=== PATIENT | male | born 1940 | race Caucasian/White ===

== ENCOUNTER 2017-09-17 02:55 | Observation (INO) | payer MEDICARE, OTHER ==
[~2017-09-17] VITALS: Ht 172.7 cm; Wt 115.2 kg
[~2017-09-17 02:55] MED LIST: ADULT ASPIRIN81 MG PO; EFFIENT PO; KENALOG60 GM TP; LORTAB 7.51 EA PO; SURFAK240 M2 PO; Z.0.KEFLEX500 MG PO; Z.0.LISINOPRIL10 MG PO; Z.0.METOPROLOL SUCC2 PO; Z.0.SIMVASTATIN40 MG PO
[2017-09-17 03:40] LABS: BASOPHILS # (AUTO) 0.1 (0.0-0.1); BASOPHILS % 0.5 % (0.0-1.0); EOSINOPHILS # (AUTO) 0.1 (0.0-0.4); EOSINOPHILS % 1.1 % (0.0-6.0); HEMATOCRIT 41.7 % (38.2-49.6); HEMOGLOBIN 14.4 g/dL (14.0-18.0); LYMPHOCYTES % 9.1 % (18.0-39.1); MEAN CORPUSCULAR HEMOGLOBIN 29.8 pg (28-32); MEAN CORPUSCULAR HGB CONC 34.5 g/dL (31-35); MEAN CORPUSCULAR VOLUME 86.3 fL (81-99); MONOCYTES # (AUTO) 0.7 (0.2-0.8); MONOCYTES % 6.7 % (4.4-11.3); NEUTROPHILS # (AUTO) 8.8 (2.1-6.9); NEUTROPHILS % 81.9 % (38.7-80.0); PLATELET COUNT 157 x10e3/uL (140-360); RED BLOOD COUNT 4.83 x10e6/uL (4.3-5.7); RED CELL DISTRIBUTION WIDTH 13.4 % (11.7-14.4)
[2017-09-17 03:44] LABS: INR 0.91; PROTHROMBIN TIME 12.7 seconds (11.9-14.5)
[2017-09-17 03:45] LABS: BILIRUBIN,URINE NEGATIVE (NEGATIVE); KETONES,URINE NEGATIVE (NEGATIVE); LEUKOCYTE ESTERASE ,URINE NEGATIVE (NEGATIVE); NITRITE,URINE NEGATIVE (NEGATIVE); URINE UROBILINOGEN 0.2 mg/dL (0.2 - 1)
[2017-09-17 03:45] LABS: PARTIAL THROMBOPLASTIN TIME 18.7 seconds (23.8-35.5)
[2017-09-17 03:48] LABS: CLARITY,URINE CLEAR (CLEAR); COLOR,URINE YELLOW (YELLOW); PROTEIN,URINE DIPSTICK 1+ (NEGATIVE)
[2017-09-17] MEDS ORDERED: ACETAMINOPHEN 325 MG TAB PO ONE (04:00)
[2017-09-17 04:11] LABS: EPITHELIAL CELLS,URINE FEW /LPF; RBC,URINE 0-5 /HPF (0-5); WBC,URINE (MAN) 0-5 /HPF (0-5)
[2017-09-17] MEDS ORDERED: ATORVASTATIN CA20 MG PO (04:13)
[2017-09-17] MEDS ORDERED: CLOPIDOGREL75 MG PO (04:13)
[2017-09-17 04:18] LABS: ALBUMIN 3.4 g/dL (3.5-5.0); ALBUMIN/GLOBULIN RATIO 0.9 (0.8-2.0); ANION GAP 15.2 mmol/L (8-16); CALCIUM 9.2 mg/dL (8.4-10.2); CREATININE, SERUM 1.18 mg/dL (0.72-1.25); POTASSIUM 4.2 mmol/L (3.5-5.1)
[2017-09-17 04:24] LABS: CREATINE KINASE MB 1.7 ng/mL (0.00-5.00); TROPONIN I 0.063 ng/mL (0-0.300)
--- NOTE | 2017-09-17 04:37 | Diagnostic Imaging Report ---
EXAM: CHEST SINGLE (PORTABLE), AP 1 view DATE: 09/17/2017 3:23 AM Time stamp on exam: 0357 hours INDICATION: Shortness of breath, headache COMPARISON: PA and lateral view of the chest May 11, 2012 FINDINGS: LINES/TUBES: None LUNGS: No consolidations or edema. PLEURA: No effusions or pneumothorax. HEART AND MEDIASTINUM: Normal size and contour. BONES AND SOFT TISSUES: No acute findings. Median sternotomy wires. IMPRESSION: No acute thoracic abnormality. Signed by: Dr. Manasa Lu M.D. on 09/17/2017 4:34 AM
[2017-09-17] MEDS ORDERED: SODIUM CHLORIDE 0.9% 1000ML 1,000 ML IV STA (05:29)
[2017-09-17] MEDS ORDERED: CEFTRIAXONE SOD 1 GM VIAL IV SCH (07:00)
[2017-09-17] MEDS ORDERED: CEFTRIAXONE SOD 1 GM/NS 50 ML 50 ML IV SCH (07:00)
[2017-09-17] MEDS ORDERED: AZITHROMYCIN 500MG/NS 250 ML 250 ML IV SCH (07:00)
[2017-09-17] MEDS ORDERED: CEFTRIAXONE SOD 1 GM VIAL ONE (07:01)
[2017-09-17] MEDS ORDERED: SODIUM CHLORIDE 0.9% 1000ML 1,000 ML IV SCH (07:15)
[2017-09-17] MEDS ORDERED: ONDANSETRON HCL INJ 2 MG/ML VIAL IV PRN (07:15)
[2017-09-17] MEDS ORDERED: METHYLPREDNISOLONE SOD SUCC 125 MG/2ML VIAL IV ONE (07:15)
[2017-09-17] MEDS ORDERED: MORPHINE SULFATE 2 MG/ML SYR IV PRN (07:15)
[2017-09-17] MEDS ORDERED: METOPROLOL SUCCINATE 25 MG TAB XL PO SCH (09:00)
[2017-09-17] MEDS ORDERED: CLOPIDOGREL BISULFATE 75 MG TAB PO SCH (09:00)
[2017-09-17 10:33] VITALS: BP 174/74
[2017-09-17 11:13] VITALS: BP 174/74
[2017-09-17] MEDS ORDERED: PREDNISONE20 MG PO (12:04)
[2017-09-17] MEDS ORDERED: AZITHROMYCIN250 MG PO (12:04)
[2017-09-17] MEDS ORDERED: CLONIDINE HCL 0.1 MG TAB PO PRN (12:45)
[2017-09-17] MEDS ORDERED: LISINOPRIL 10 MG TAB PO SCH (17:00)
[2017-09-17 17:05] VITALS: BP 129/59
[2017-09-17] MEDS ORDERED: CEFTRIAXONE SOD 1 GM in WATER STERILE 10ML VIAL 10 ML IV SCH (19:00)
[2017-09-17] MEDS ORDERED: ATORVASTATIN 20 MG TAB PO SCH (21:00)
[2017-09-18] MEDS ORDERED: PREDNISONE 20 MG TAB PO SCH (09:00)
--- NOTE | 2017-09-18 15:00 | History and Physical ---
CHIEF COMPLAINT: Shortness of breath. HISTORY OF PRESENT ILLNESS: Mr. Chen is a 77-year-old gentleman with past medical history of hypertension, hypercholesterolemia, coronary artery disease with prior history of CABG in November 2013 and prior history of multiple PCIs by SHANNAN Nguyễn who presents to this institution with difficulty breathing and shortness of breath. The patient reports about 3 weeks ago having sinus nasal type drainage and stuffiness associated with some vertigo symptoms. He was seen by his primary care physician and was given some anti-decongestant medication. The patient progressively felt worse over the last several days with a sick contact being his coworker. He had been reporting over the last 3-4 days subjective fevers, chills, cough that is not productive and a little bit of subjective wheezing. The patient felt lethargic and had not been eating well over the last couple of days. He was seen in the emergency room here and was noted to have some wheezing and was given a steroid shot, which substantially made him feel better. He was also given a liter of IV fluids for mild dehydration which has perked him up. He is currently feeling very well right now. He did have a T max of 102 in the emergency room and was given a dose of Rocephin, azithromycin intravenously. Influenza screen was negative and chest x-ray did not show any evidence of congestion or signs of pneumonia. Being that it is [place], the patient is very eager to go home, and wants to go home. He says that he feels better right now than in days, and understands and risks and benefits. His EKG showed normal sinus rhythm and nonspecific changes, but no ischemia and his troponin was 0.063 with a BNP of 160. Again, he denies any chest pain or discomfort and he says that he knows very well what angina feels like and had not had any in quite some time. PAST MEDICAL HISTORY: 1. Hypertension, essential, diagnosed in 1994. 2. Hypercholesterolemia in 1994. 3. Coronary artery disease with prior history of multiple stents, procedure with Dr. Crawford, and subsequently coronary artery bypass grafting in November 1013. 4. Degenerative joint disease. 5. History of prostate cancer. PAST SURGICAL HISTORY: 1. History of left hip replacement in 2008. 2. History of prostatectomy in 2009. 3. History of 2-vessel bypass in 2013. FAMILY HISTORY: Mother at 89 with Parkinson's. Father at 92 with DJD. Has a brother with heart problems in his 60s, and he has another brother who at the age of 30 with lung cancer and another brother who at the age of 60 with lung cancer. SOCIAL HISTORY: He is . He is a former smoker. He quit 30 years ago. Denies any alcohol or illicit drug use. ALLERGIES: NO KNOWN DRUG ALLERGIES. CURRENT MEDICATIONS: 1. Plavix 75 mg daily. 2. Lipitor 20 mg daily. 3. Metoprolol 25 mg b.i.d. 4. Lisinopril 10 mg daily. 5. Of note, has been off antiplatelet therapy with aspirin to minimize risk of GI bleeding. REVIEW OF SYSTEMS: GENERAL: Positive for fevers and slight chills but no weight changes. HEENT: Has nasal stuffiness, no sore throat. Denies any post nasal drip symptoms. CARDIOVASCULAR: As per HPI. LUNGS: Positive for nonproductive cough. URI symptoms as noted per HPI. GI: Denies any abdominal pain, nausea or vomiting, bright red blood per rectum, hematemesis. HEMATOLOGY: Positive for easy bruising. No bleeding. : Denies any dysuria. Has increased urinary frequency and nocturia at times. MUSCULOSKELETAL: Has some knee arthritis and lower back pain that is chronic. NEUROLOGIC: Denies any focal weakness, numbness, seizures, TIA or stroke. Did have some dizziness and vertigo symptoms 3 weeks ago with nasal stuffiness and sinus issues. The remainder of review of systems negative unless otherwise mentioned. PHYSICAL EXAMINATION VITAL SIGNS: Height 68 inches, weight of 254 pounds. BMI is 38.6. Temperature 96.8, T max 102. Pulse 74, respiratory rate 20, blood pressure 130/61. O2 sat 97% on room air. GENERAL: This is a well-nourished, obese gentleman who is currently in no apparent distress. HEENT: Pupils are equally round and reactive to light with slightly injected sclerae. Oropharynx is clear. NECK: There is no elevation of jugular venous pulsation. No carotid bruits. CARDIOVASCULAR: Regular rate and rhythm. Normal S1 and S2. A soft 1/6 systolic ejection murmur at the left lower sternal border. LUNGS: There is an old sternotomy scar, surprisingly fairly clear to auscultation and bilaterally. Currently not wheezing. ABDOMEN: Soft and nontender. Obese. Normoactive bowel sounds. No hepatosplenomegaly. BACK: No costovertebral angle tenderness. EXTREMITIES: Warm with an old saphenous vein graft harvest scar. Pulses are 1+ to 2+ bilaterally upper and lower extremities. NEUROLOGIC: Alert and oriented x3. Cranial nerves II-XII intact. Strength is 5/5, nonfocal. PSYCHIATRIC: Normal fluent speech. Appropriate affect. No anxiety or delusions. LABORATORY DATA: White count of 10.75, hemoglobin 14.4, hematocrit 41.7, platelets 157,000. Sodium 129, potassium 4.2, chloride 100, bicarb 18, BUN 18, creatinine 1.18, glucose 248, calcium 9.2. AST 31, ALT 44, alkaline phosphatase 44. Total protein 7.1. Albumin of 3.4. BNP is 160. Troponin is 0.063. INR is 0.91. UA shows 0-5 white cells. Chest x-ray revealed no infiltrates. EKG revealed normal sinus rhythm and nonspecific ST-T wave changes. DIAGNOSES 1. Acute exacerbation of chronic bronchitis. 2. Coronary artery disease with history of bypass grafting. 3. Hypovolemic hyponatremia. 4. Elevated blood sugar, which is nonfasting. 5. Hypertension, essential. 6. Hyperglycemia. PLAN/RECOMMENDATIONS: 1. The patient seems to have responded quite nicely to IV steroid bursts, and will recommend continued therapy with that. 2. Will give him azithromycin for atypical coverage. 3. Will continue his antiplatelet therapy with Plavix. Statin therapy as well as beta laine therapy. 4. From a cardiovascular standpoint, there are no anticipated procedures at the present time. 5. Will recommend followup with pulmonary, primary care doctor in terms of his lung issues and then his impaired fasting blood sugar. 6. The patient is okay from cardiovascular standpoint to be discharged later on today. Job#: [id number]
== END 2017-09-17 16:58 | disposition home or self-care (01) ==
LOC: ER 02:55 → ERHOLD 07:09 → IMCU 09:55
PROVIDERS: ADMIT Internal Medicine Cardiovascular Disease; ATTEND Internal Medicine Cardiovascular Disease
DX: J20.9 Acute bronchitis, unspecified (principal); E86.0 Dehydration; E87.1 Hypo-osmolality and hyponatremia; I25.10 Atherosclerotic heart disease of native coronary artery without angina pectoris; Z95.1 Presence of aortocoronary bypass graft; Z87.891 Personal history of nicotine dependence; R73.9 Hyperglycemia, unspecified; J42 Unspecified chronic bronchitis
CPT/HCPCS: 36415; 71010; 80053; 81001; 82550; 82553; 83036; 83605; 83735; 83880; 84484; 85025; 85610; 85730; 87040; 87071; 87086; 87205; 87400; 93005; 96360; 99284; G0378; J0456; J0696 ×2; J2930; J7030

== ENCOUNTER → 2018-09-04 | Day surgery (SDC) | payer MEDICARE, OTHER ==
[2018-09-03 08:53] LABS: BASOPHILS # (AUTO) 0.1 (0.0-0.1); BASOPHILS % 0.9 % (0.0-1.0); EOSINOPHILS # (AUTO) 0.3 (0.0-0.4); EOSINOPHILS % 2.9 % (0.0-6.0); HEMATOCRIT 45.9 % (38.2-49.6); HEMOGLOBIN 15.3 g/dL (14.0-18.0); LYMPHOCYTES # (AUTO) 1.8 (1.0-3.2); LYMPHOCYTES % 17.4 % (18.0-39.1); MEAN CORPUSCULAR HEMOGLOBIN 28.9 pg (28-32); MEAN CORPUSCULAR HGB CONC 33.3 g/dL (31-35); MEAN CORPUSCULAR VOLUME 86.8 fL (81-99); MONOCYTES # (AUTO) 1.1 (0.2-0.8); MONOCYTES % 10.6 % (4.4-11.3); NEUTROPHILS % 67.9 % (38.7-80.0); PLATELET COUNT 253 x10e3/uL (140-360); RED BLOOD COUNT 5.29 x10e6/uL (4.3-5.7); RED CELL DISTRIBUTION WIDTH 13.5 % (11.7-14.4)
[~2018-09-04] MED LIST changes: +ATORVASTATIN CA20 MG PO; +AZITHROMYCIN250 MG PO; +BUPIVACAINE HCL 0.5% 10ML MPF VIAL INJ ONE; +CLOPIDOGREL75 MG PO; +FENTANYL CITRATE/PF 100MCG/2 ML INJ ONE; +IOPAMIDOL 200 MG/ML 20 ML VIAL IT ONE; +LIDOCAINE HCL 1% LOCAL INJ 20 ML VIAL ONE; +LIDOCAINE HCL 2% LOCAL INJ 5 ML SDV VIAL INJ ONE; +MIDAZOLAM HCL 2 MG/2 ML VIAL ONE; +MULTI-VITAMIN1 EACH; +PREDNISONE20 MG PO; +PROPOFOL IV EMULSION 10 MG/ML 20 ML VIAL ONE; +TRIAMCINOLONE ACET 40 MG/ML VIAL ONE; +VITAMIN D400 UNIT PO
--- OUTSIDE RECORDS SUMMARY | 2018-09-04 05:26 | XMS REPORT ---
Author Author [facility] Address Unknown Phone Unavailable Care Team Providers Care Outpatient Program Coordinator Name Role Phone Katherine GAMBINO Unavailable Unavailable Problems This patient has no known problems. Allergies, Adverse Reactions, Alerts This patient has no known allergies or adverse reactions. Medications This patient has no known medications. Results Test Description Test Time Test Comments Text Results Atomic Results Result Comments CHEST SINGLE (PORTABLE) [address] [address] Patient Name: DELORIS CENTENO MR #: [id number] : 1940 Age/Sex: 77/M Req #: [id number] Adm Physician: Ordered by: YESICA GAMBINO MD Report #: [id number] Location: ER Room/Bed: Procedure: [id number] DX/CHEST SINGLE (PORTABLE) Exam Date: 09/17/17 Exam Time: 0357 REPORT STATUS: Signed EXAM: CHEST SINGLE (PORTABLE), AP 1 view DATE: 09/17/2017 3:23 AM Time stamp on exam: 0357 hours INDICATION: Shortness of breath, headache COMPARISON: PA and lateral view of the chest May 11, 2012 FINDINGS: LINES/TUBES: None LUNGS: No consolidations or edema. PLEURA: No effusions or pneumothorax. HEART AND MEDIASTINUM: Normal size and contour. BONES AND SOFT TISSUES: No acute findings. Median sternotomy wires. IMPRESSION: No acute thoracic abnormality. Signed by: Dr. Demar Delvalle M.D. on 09/17/2017 4:34 AM Dictated By: DEMAR DELVALLE MD 3 Transcribed By: PING on 09/17/17433 COPY TO: YESICA GAMBINO MD
[2018-09-04 08:20] VITALS: BP 134/78
--- NOTE | 2018-09-04 11:42 | Operative Report ---
DATE OF PROCEDURE: September 04, 2018 PREOPERATIVE DIAGNOSIS: Osteoarthritis, right hip and lumbar spine. POSTOPERATIVE DIAGNOSIS: Osteoarthritis, right hip and lumbar spine. PROCEDURE: Fluoroscopic-guided injection, right hip. INDICATIONS: The patient is a 78-year-old gentleman who has arthritic changes in his right hip. He also has some issues with his low back. We have discussed the options. He would like to proceed with a fluoroscopic-guided corticosteroid injection of the right hip. He understands this will give him at least a temporary sense of how much pain is coming from his hip versus his back. He wishes to proceed. DESCRIPTION OF PROCEDURE: The patient was brought to the procedure room. He was given IV sedation. His right hip was prepped and draped in a sterile manner. A preoperative time out was performed. A C-arm image intensifier was used to assist in placing an 18-gauge spinal needle into the inferior recess of the right hip joint. A small amount of radiopaque dye was used to confirm intra-articular positioning. A mixture of 8 mL of 0.5% Marcaine and 40 mg of Kenalog were then injected into the joint. The needle was retrieved and a Band-Aid was applied. The patient was transported to the recovery room in stable condition. There was no blood loss, and all needle and sponge counts were correct. Job#: [id number]
== END | disposition home or self-care (01) ==
LOC: OR 05:21
PROVIDERS: ATTEND Specialist
DX: M16.11 Unilateral primary osteoarthritis, right hip (principal); E78.00 Pure hypercholesterolemia, unspecified; I10 Essential (primary) hypertension; Z96.642 Presence of left artificial hip joint; M47.816 Spondylosis without myelopathy or radiculopathy, lumbar region; Z85.46 Personal history of malignant neoplasm of prostate; I25.10 Atherosclerotic heart disease of native coronary artery without angina pectoris; Z95.5 Presence of coronary angioplasty implant and graft; I25.2 Old myocardial infarction; E78.5 Hyperlipidemia, unspecified; Z95.1 Presence of aortocoronary bypass graft; Z87.891 Personal history of nicotine dependence; Z01.812 Encounter for preprocedural laboratory examination; Z01.810 Encounter for preprocedural cardiovascular examination
CPT/HCPCS: 36415; 85025; 93005; 96379; J2001; J2250; J2704; J3301; Q9967

== ENCOUNTER 2018-11-20 06:52 | Inpatient (IN) | payer MEDICARE, OTHER ==
[2018-11-19 14:42] LABS: BASOPHILS # (AUTO) 0.1 (0.0-0.1); BASOPHILS % 0.5 % (0.0-1.0); EOSINOPHILS # (AUTO) 0.2 (0.0-0.4); EOSINOPHILS % 1.8 % (0.0-6.0); HEMATOCRIT 44.2 % (38.2-49.6); HEMOGLOBIN 15.1 g/dL (14.0-18.0); LYMPHOCYTES # (AUTO) 1.9 (1.0-3.2); LYMPHOCYTES % 19.6 % (18.0-39.1); MEAN CORPUSCULAR HEMOGLOBIN 29.5 pg (28-32); MEAN CORPUSCULAR HGB CONC 34.2 g/dL (31-35); MEAN CORPUSCULAR VOLUME 86.3 fL (81-99); MONOCYTES # (AUTO) 1.3 (0.2-0.8); MONOCYTES % 13.3 % (4.4-11.3); NEUTROPHILS # (AUTO) 6.4 (2.1-6.9); NEUTROPHILS % 64.5 % (38.7-80.0); PLATELET COUNT 248 x10e3/uL (140-360); RED BLOOD COUNT 5.12 x10e6/uL (4.3-5.7); RED CELL DISTRIBUTION WIDTH 14.2 % (11.7-14.4)
--- NOTE | 2018-11-19 15:52 | Diagnostic Imaging Report ---
EXAM: CHEST 2 VIEWS, PA and lateral DATE: 11/19/2018 Time stamp on exam: 2:30 PM INDICATION: Preoperative COMPARISON: 09/17/2017 FINDINGS: LINES/TUBES: Sternotomy wire sutures and mediastinal clips. LUNGS: No consolidations or edema. PLEURA: No effusions or pneumothorax. HEART AND MEDIASTINUM: Normal size and contour. BONES AND SOFT TISSUES: Flowing osteophytosis of the thoracic spine. IMPRESSION: No acute thoracic abnormality. Signed by: Dr. Quirino Gordillo DO on 11/19/2018 3:48 PM
[~2018-11-20] VITALS: Ht 172.7 cm; Wt 115.2 kg
[~2018-11-20 06:52] MED LIST changes: +ASPIRIN325 MG PO; -BUPIVACAINE HCL 0.5% 10ML MPF VIAL INJ ONE; -FENTANYL CITRATE/PF 100MCG/2 ML INJ ONE; -IOPAMIDOL 200 MG/ML 20 ML VIAL IT ONE; -LIDOCAINE HCL 1% LOCAL INJ 20 ML VIAL ONE; -LIDOCAINE HCL 2% LOCAL INJ 5 ML SDV VIAL INJ ONE; -MIDAZOLAM HCL 2 MG/2 ML VIAL ONE; -PROPOFOL IV EMULSION 10 MG/ML 20 ML VIAL ONE; -TRIAMCINOLONE ACET 40 MG/ML VIAL ONE; +TYLENOL WITH C1 EACH PO
[2018-11-20] MEDS ORDERED: VANCOMYCIN HCL 1 GM VIAL ONE (06:56)
[2018-11-20] MEDS ORDERED: SODIUM CHLORIDE 0.9% 500ML 500 ML ONE (06:56)
[2018-11-20] MEDS ORDERED: TRANEXAMIC ACID 1,000 MG/10 ML ML ONE (06:57)
[2018-11-20] MEDS ORDERED: BACITRACIN 50,000 UNIT VIAL ONE (06:57)
[2018-11-20] MEDS ORDERED: DEXAMETHASONE SOD PHOS 10 MG/1 ML VIAL ONE (07:26)
[2018-11-20] MEDS ORDERED: GABAPENTIN 300 MG CAP ONE (07:26)
[2018-11-20] MEDS ORDERED: CELECOXIB 200 MG CAP ONE (07:26)
[2018-11-20] MEDS ORDERED: CEFAZOLIN SOD 2 GM/D5W 50ML 50 ML IV ONE (07:26)
[2018-11-20] MEDS ORDERED: HYDROGEN PEROXIDE 120 ML BTL ONE (07:29)
[2018-11-20] MEDS ORDERED: ROPIVACAINE 246.25 MG, EPINEPHRINE HCL 1:1000 1ML 0.5 MG, CLONIDINE HCL 0.08 MG, KETORO... INJ ONE ×5 (07:30)
[2018-11-20] MEDS ORDERED: PROMETHAZINE HCL (IM) 25 MG/ML VIAL IM PRN (11:15)
[2018-11-20] MEDS ORDERED: DOCUSATE SODIUM 100 MG CAP PO PRN (11:15)
[2018-11-20] MEDS ORDERED: ACETAMINOPHEN 650 MG SUPP PR PRN (11:15)
[2018-11-20] MEDS ORDERED: KETOROLAC TROMETHAMINE 30 MG/ML VIAL IV PRN (11:15)
[2018-11-20] MEDS ORDERED: ONDANSETRON HCL INJ 2MG/ML 2ML 2 MG/ML VIAL IV PRN (11:15)
[2018-11-20] MEDS ORDERED: DIPHENHYDRAMINE HCL INJ 50 MG/ML VIAL IM/IV PRN (11:15)
[2018-11-20] MEDS ORDERED: HYDROCODONE/APAP 5MG-325MG TAB PO PRN (11:15)
--- NOTE | 2018-11-20 11:38 | Diagnostic Imaging Report ---
Exam: Pelvis single frontal view History: Status post total right hip replacement Comparison: None. Findings: See impression Impression: Status post total right hip replacement with intact and appropriately positioned acetabular cup and femoral stem components. Subcutaneous/interstitial gas and skin jerome compatible with recent surgery. No periprosthetic displaced fracture. Intact left hip prosthesis incidentally noted. Signed by: Dr. Jame Arellano M.D. on 11/20/2018 11:35 AM
[2018-11-20] MEDS: SODIUM CHLORIDE 0.9% 1000ML 1,000 ML IV SCH ×2 (14:11→21:01)
[2018-11-20] MEDS: ACETAMINOPHEN 1000 MG/100 ML IV SCH ×2 (14:11→17:18)
[2018-11-20] MEDS: CEFAZOLIN SOD 1 GM/NS 50ML 50 ML IV SCH ×2 (14:12→21:31)
[2018-11-20 14:49] VITALS: BP 136/76
[2018-11-20 14:51] VITALS: BP 136/76
[2018-11-20] MEDS ORDERED: SEVOFLURANE INHAL SOLN 250 ML PEN BTL ONE (15:18)
[2018-11-20] MEDS ORDERED: ROCURONIUM BROMIDE 10 MG/ML 5ML VIAL ONE (15:18)
[2018-11-20] MEDS ORDERED: GLYCOPYRROLATE INJ 1MG/ 5 ML SYR ONE (15:18)
[2018-11-20] MEDS ORDERED: ONDANSETRON HCL INJ 2MG/ML 2ML 2 MG/ML VIAL ONE (15:18)
[2018-11-20] MEDS ORDERED: DEXAMETHASONE SOD PHOS INJ 4 MG/ML VIAL ONE (15:18)
[2018-11-20] MEDS ORDERED: LIDOCAINE HCL 2% LOCAL INJ 5 ML SDV VIAL INJ ONE (15:18)
[2018-11-20] MEDS ORDERED: PROPOFOL IV EMULSION 10 MG/ML 20 ML VIAL ONE (15:18)
[2018-11-20] MEDS ORDERED: NEOSTIGMINE 5 MG/5ML SYR ONE (15:18)
[2018-11-20 16:56] VITALS: BP 152/62
[2018-11-20] MEDS ORDERED: CELECOXIB 100 MG CAP PO SCH (17:00)
[2018-11-20] MEDS: CELECOXIB 200 MG CAP PO SCH (17:17)
[2018-11-20] MEDS: ASPIRIN 325 MG TAB PO SCH (17:17)
--- NOTE | 2018-11-20 18:26 | Operative Report ---
DATE OF PROCEDURE: 11/20/2018 SURGEON: Jame uRelas MD MERCHANDISE COORDINATOR: Fortunato Pendleton PA-C PREOPERATIVE DIAGNOSIS: Osteoarthritis, right hip. POSTOPERATIVE DIAGNOSIS: Osteoarthritis, right hip. PROCEDURE: Right total hip arthroplasty. INDICATIONS: The patient is an active 78-year-old gentleman, who has end-stage arthritis of his right hip. He has failed conservative management and would like to proceed with a right total hip replacement. He had a left total hip replacement performed several years ago. He is happy with the outcome. We intend to match the prosthesis as much as possible. DESCRIPTION OF PROCEDURE: The patient was brought to the operating room and placed under general anesthetic. He was positioned in the left lateral decubitus position. His right hip was prepped and draped in a sterile manner. A preoperative time-out was performed. A posterior approach was made to the right hip. Care was taken to avoid injury to the sciatic nerve. Hemostasis was obtained with electrocautery. A deep self-retaining Charnley retractor was placed. The patient had good muscle quality for his age. The posterior capsule was carefully exposed and released. The hip was dislocated and an oscillating saw was used to resect the femoral head. Further hemostasis was obtained with electrocautery. Acetabular retractors were carefully placed. The remnant of the labrum was excised. The true floor of the acetabulum was established with a 50 mm reamer. The socket was then sequentially reamed up to 57 mm. The hip was irrigated on a number of occasions with a mixture of diluted polymyxin and vancomycin as well as a shower tip pulsatile lavage. A Miki 58 mm Trident socket was impacted into place. Excellent fixation was obtained. Fixation was further augmented with a 20 mm screw placed into the ilium. A highly crosslinked polyethylene liner with no posterior elevation and a 36 mm inner diameter was then seated. Care was taken to make sure that there was no evidence of soft tissue interposition. The socket was then packed with a moistly soaked lap sponge. Attention was directed towards the proximal femur. A box cutting osteotome and taper pin reamer were used to establish entry to the femoral canal. The Miki [place] 44 mm offset broaches were used for trial. A #1 stem had good stability for trial reduction. As with the other hip, a +5 mm head was needed to restore the offset and provide appropriate stability. The trial implants were removed. A bone plug was placed down the femoral canal. The canal was thoroughly irrigated with a pulsatile lavage. The canal was packed with moistly soaked peroxide sponges under suction. Two mixes of Simplex cement preloaded with antibiotics were prepared on the back table. This was inserted in a retrograde fashion and pressurized until about 6 minutes of cement time. The stem was seated to the predetermined level in about 15 degrees of anteversion. Once the cement had cured, repeat trial reductions were performed. Again, a +5 mm head was felt to be appropriate. The head was seated on to the stem and a final reduction was performed. A 100 mL premixed pericapsular DES injection was placed into the surrounding soft tissue. The posterior capsule was well preserved and was repaired with #2 Ethibond. The piriformis was well contracted and did not need to be repaired. The gluteal fascia was closed with #2 Ethibond. The skin was closed with subcuticular Vicryl and jerome. A sterile Aquacel bandage was applied. He was returned to the supine position, extubated, and transported to the recovery room in stable condition. Blood loss was approximately 100 mL. All needle and sponge counts were correct. Jame Ruelas MD DR/MAXX /[id number]
--- NOTE | 2018-11-20 19:20 | NUR ---
REPORT TAKEN FROM AM RN.WALKING ROUNDS DONE.
[2018-11-20] MEDS ORDERED: FENTANYL CITRATE/PF 100MCG/2 ML INJ ONE (19:27)
[2018-11-20] MEDS ORDERED: MIDAZOLAM HCL 2 MG/2 ML VIAL ONE (19:27)
[2018-11-20 20:00] VITALS: BP 135/66
[2018-11-20] MEDS ORDERED: ZOLPIDEM TARTRATE 5 MG TAB PO PRN (21:00)
[2018-11-20 22:00] VITALS: BP 135/66
[2018-11-21] VITALS: BP 156/59
--- NOTE | 2018-11-21 00:10 | NUR ---
JOSHI CARE GIVEN.ASSESSMENT DONE.NO RESP.DISTRESS.NO PAIN VOICED.ABDUCTION PILLOW IS IN PLACE.PLEXIPUMP AND REINALDO HOSE IN PLACE.BED LOCKED AND IN LOWEST POSITION.PHONE AND CALL LIGHT WITHIN REACH.INSTRUCTED TO CALL FOR ASSISTANCE NEEDED.INCISION SITE IS DRY AND INTACT.
[2018-11-21] MEDS: ACETAMINOPHEN 1000 MG/100 ML IV SCH ×2 (00:27→05:30)
[2018-11-21 04:00] VITALS: BP 143/65
[2018-11-21] MEDS: HYDROCODONE/APAP 7.5MG-325MG 1 EA TAB PO PRN ×2 (04:40→08:55)
--- NOTE | 2018-11-21 06:00 | NUR ---
D/C JOSHI PER MD ORDER.PT IS DUE TO VOID.
[2018-11-21] MEDS: CEFAZOLIN SOD 1 GM/NS 50ML 50 ML IV SCH (06:02)
[2018-11-21] MEDS: SODIUM CHLORIDE 0.9% 1000ML 1,000 ML IV SCH (06:27)
[2018-11-21 06:56] LABS: HEMATOCRIT 36.3 % (38.2-49.6); HEMOGLOBIN 12.2 g/dL (14.0-18.0)
--- NOTE | 2018-11-21 07:00 | NUR ---
REPORT GIVEN TO THE ONCOMING RN.WALKING ROUNDS DONE.STABLE CONDITION.
--- NOTE | 2018-11-21 07:27 | NUR ---
PT VOIDED AFTER JOSHI REMOVAL INTO TOILET
[2018-11-21 08:25] VITALS: BP 156/71
[2018-11-21 08:54] VITALS: BP 156/71
[2018-11-21] MEDS: CELECOXIB 200 MG CAP PO SCH (08:54)
[2018-11-21] MEDS: ASPIRIN 325 MG TAB PO SCH (08:54)
[2018-11-21] MEDS ORDERED: METOPROLOL SUCCINATE 25 MG TAB XL PO SCH (09:00)
[2018-11-21] MEDS ORDERED: LISINOPRIL 10 MG TAB PO SCH (09:00)
[2018-11-21] MEDS ORDERED: NORCO 7.5-3251 EACH PO (10:28)
--- NOTE | 2018-11-21 10:38 | NUR ---
CASE MANAGEMENT ASSESSMENT Splash Line Operator to bedside to discuss plan of care with patient/family. CM/SW role and care transitions discussed. Anticipated discharge plan discussed along with duration of care. CM/SW discussed patients right to make decisions in care. CM/SW work hours given. Patient lives: with his Alida Admit/Transfer: from PACU Hospital/ER visits since last admit: last hospitalization years ago when pt had heart bypass POA/Emergency contact: Alida Mancilla [phone] Current/Previous Home Health: Home health set up by Dr. Ruelas's office with [facility]. Pt agreeable to use that company. Choice letter signed and placed in chart. Copy to pt. CM called and spoke to Tereza at [facility]. Informed her that pt is discharging today. She stated they will try to see pt today, but if not, then they will see him tomorrow. P [phone] / F [phone]. Operative report and PT notes faxed to [facility]. PCP/Follow-up Care: Dr. Littlejohn - PCP; Pt states he will call Dr. Ruelas's office and make a follow up appointment. Has been instructed by MD to follow up 10 days after discharge. Current/Previous DME: Walker and brace was delivered to bedside. Pt declined 3-in-1 commode. 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 Name and number was also written on the patients whiteboard. Patient verbalized understanding of discussion. CM will follow-up with ongoing discharge and transition of care needs.
--- NOTE | 2018-11-21 11:00 | NUR ---
DISCHARGE INSTRUCTIONS GIVEN AND PRESCRIPTIONS GIVEN. PT VERBALIZED UNDERSTANDING . IV DC PRESSURE DRESSING APPLIED AND TAPPED. PHYSICAL THERAPY HAS CLEARED PT DC AND HH HAS BEEN SET UP PT HAS A WALKER AT BEDSIDE TO TAKE HOME PT IS NOW OFF UNIT TO HOME
--- NOTE | 2018-11-21 11:12 | Consultation ---
DATE OF CONSULTATION: REASON FOR CONSULTATION: Postop management. HISTORY OF PRESENT ILLNESS: The patient is a 78-year-old, status post right hip arthroplasty for end-stage osteoarthritis. He was doing well postoperatively with minimal pain. REVIEW OF SYSTEMS: Denies any chest pain, fever, chills, nausea, vomiting, headache, or shortness of breath. PAST MEDICAL HISTORY: Significant for hypertension, heart disease, hyperlipidemia, coronary artery bypass, osteoarthritis. MEDICATIONS: See MAR. ALLERGIES: NONE. SOCIAL HISTORY: Nonsmoker, nondrinker. Lives at home with his . FAMILY HISTORY: Noncontributory. PHYSICAL EXAMINATION: VITAL SIGNS: Temperature 98.2, pulse 83, blood pressure 156/59, saturations 97% on room air. GENERAL: No apparent distress, lying in bed. NECK: Supple. No lymphadenopathy. CARDIOVASCULAR: Regular rate and rhythm. LUNGS: Clear to auscultation bilaterally. ABDOMEN: Good bowel sounds, soft, nontender. EXTREMITIES: No clubbing or cyanosis. NEUROLOGIC: Nonfocal. ASSESSMENT AND PLAN: 1. Right hip pain. We will continue with postoperative care. 2. Hypertension. We will continue with his home medications. 3. Coronary artery disease. We will continue with his home medication at discharge. 4. Hyperlipidemia. We will continue with his cholesterol medication at discharge. 5. Anemia. We will check a CBC. Please see hospital chart for details. MD VIOLETA Alvares/MAXX /[id number]
[2018-11-21] MEDS ORDERED: ACETAMINOPHEN 1000 MG/100 ML IV PRN (11:15)
--- NOTE | 2018-11-21 15:26 | NUR ---
IMM EXPLAINED, SIGNED BY PT AND PLACED ON CHART COPY TO PT IN CARE TRANSITION FOLDER
== END 2018-11-21 10:56 | disposition home health service (06) | DRG 470 ==
LOC: OR 06:52 → PACU V 11:03 → MED/SURG 13:04
PROVIDERS: ADMIT Specialist; ATTEND Specialist
PROC: 0SR90J9 Replacement of Right Hip Joint with Synthetic Substitute, Cemented, Open Approach (ICD-10-PCS; principal; 2018-11-20 09:27)
DX: M16.11 Unilateral primary osteoarthritis, right hip (principal); I10 Essential (primary) hypertension; I25.10 Atherosclerotic heart disease of native coronary artery without angina pectoris; D64.9 Anemia, unspecified
CPT/HCPCS: 36415; 71046; 72170; 85014; 85018; 85025; 86850; 86900; 86920; C1713; J0171; J0690; J1100; J1885; J2001; J2250; J2405; J2795; J3370; J7030; J7040

== ENCOUNTER 2023-01-21 11:52 | Emergency (ER) | payer MEDICARE, OTHER ==
[~2023-01-21] VITALS: Ht 172.7 cm; Wt 115.2 kg
[~2023-01-21 11:52] MED LIST changes: +NORCO 7.5-3251 EACH PO
[2023-01-21] MEDS ORDERED: ONDANSETRON HCL INJ 2MG/ML 2ML 2 MG/ML VIAL IV STA (12:47)
[2023-01-21] MEDS ORDERED: METRONIDAZOLE 500MG/NS 100ML 100 ML IV ONE (13:00)
[2023-01-21 13:09] LABS: BASOPHILS # (AUTO) 0.1 (0.0-0.1); BASOPHILS % 0.8 % (0.0-1.0); EOSINOPHILS # (AUTO) 0.3 (0.0-0.4); EOSINOPHILS % 3.3 % (0.0-6.0); HEMATOCRIT 42.4 % (38.2-49.6); HEMOGLOBIN 14.2 g/dL (14.0-18.0); LYMPHOCYTES % 24.2 % (18.0-39.1); MEAN CORPUSCULAR HEMOGLOBIN 29.5 pg (28-32); MEAN CORPUSCULAR HGB CONC 33.5 g/dL (31-35); MEAN CORPUSCULAR VOLUME 88.1 fL (81-99); MONOCYTES # (AUTO) 0.8 (0.2-0.8); NEUTROPHILS # (AUTO) 5.2 (2.1-6.9); NEUTROPHILS % 61.3 % (38.7-80.0); PLATELET COUNT 217 x10e3/uL (140-360); RED BLOOD COUNT 4.81 x10e6/uL (4.3-5.7)
[2023-01-21 13:28] LABS: ALBUMIN 3.9 g/dL (3.5-5.0); ANION GAP 15.8 mmol/L (8-16); CALCIUM 9.9 mg/dL (8.4-10.2); CREATININE, SERUM 1.1 mg/dL (0.72-1.25); POTASSIUM 3.8 mmol/L (3.5-5.1)
[2023-01-21 13:56] LABS: CLARITY,URINE CLEAR (CLEAR); COLOR,URINE YELLOW (YELLOW); KETONES,URINE NEGATIVE (NEGATIVE); LEUKOCYTE ESTERASE ,URINE NEGATIVE (NEGATIVE); NITRITE,URINE NEGATIVE (NEGATIVE); PROTEIN,URINE DIPSTICK 2+ (NEGATIVE); URINE UROBILINOGEN 1 mg/dL (0.2 - 1)
[2023-01-21] MEDS ORDERED: IOPAMIDOL 370 MG/ML 100 ML INFUS..BTL INJ ONE (14:01)
[2023-01-21 14:02] LABS: WBC,URINE (MAN) 0-5 /HPF (0-5)
[2023-01-21 14:03] LABS: BACTERIA,URINE FEW /HPF; EPITHELIAL CELLS,URINE RARE /LPF; MUCUS,URINE RARE (RARE)
[2023-01-21] MEDS ORDERED: LEVSIN-SL0.125 MG SL (17:51)
[2023-01-21] MEDS ORDERED: AMOX TR-K CLV1 EAC2 PO (17:51)
== END 2023-01-21 18:02 | disposition home or self-care (01) ==
LOC: ER 12:00
DX: R10.32 Left lower quadrant pain (principal); K57.32 Diverticulitis of large intestine without perforation or abscess without bleeding; K80.20 Calculus of gallbladder without cholecystitis without obstruction; K76.0 Fatty (change of) liver, not elsewhere classified; I25.10 Atherosclerotic heart disease of native coronary artery without angina pectoris; Z95.5 Presence of coronary angioplasty implant and graft; Z85.46 Personal history of malignant neoplasm of prostate
CPT/HCPCS: 36415; 74177; 80053; 81001; 85025; 93005; 99284; J2405; Q9967